=== PATIENT | female | born 1960 | race Caucasian/White ===

== ENCOUNTER 2025-03-27 22:58 | Outpatient (CLI) | payer MEDICARE, OTHER, SELFPAY | END 2025-03-27 22:59 | disposition home or self-care (01) | LOC: AMB 04-28 04:18 | PROVIDERS: PCP Family Medicine; Visit Provider Family Medicine | DX: I82.4Y2 Acute embolism and thrombosis of unspecified deep veins of left proximal lower extremity (principal) | CPT/HCPCS: A0425; A0434 ==